=== PATIENT | male | born 1995 | race Caucasian/White ===

== ENCOUNTER 2022-07-07 08:39 | Emergency (ER) | payer OTHER ==
[2022-07-07] MEDS: Diphtheria,Pertussis(Acell),Tetanus Vaccine 0.5 ML Syringe IM ONE (09:35)
[2022-07-07] MEDS: Bacitracin Oint 1 GM U/D Packet TOP ONE (09:35)
[2022-07-07] MEDS: Lidocaine 1% 5 ML VIAL INJECT ONE (09:35)
== END 2022-07-07 10:25 | disposition home or self-care (01) ==
LOC: LL.ED 08:39
DX: S61.211A Laceration without foreign body of left index finger without damage to nail, initial encounter (principal); Z88.0 Allergy status to penicillin; Z23 Encounter for immunization; W26.8XXA Contact with other sharp object(s), not elsewhere classified, initial encounter
CPT/HCPCS: 12001; 73140-F1; 90471; 90715; 99283; 99283-25